=== PATIENT | female | born 1975 | race Two or more races ===

== ENCOUNTER 2025-01-24 01:06 | Emergency (ER) | payer MEDICAID, SELFPAY ==
[2025-01-24 01:09] VITALS: BMI 43.9
[2025-01-24 01:57] VITALS: BP 122/76; PULSE 91; RESP 17; TEMP 36.9; O2SAT 97
--- NOTE | 2025-01-24 02:30 | PD.EDRME ---
Rapid Medical Screening Exam RME Arrival date/time: 01/24/25 01:06 Chief Complaint: Abdominal Pain Time Seen by Provider: 01/24/25 02:06 Vital signs: Vital Signs Temperature 98.4 F 01/24/25 01:57 Pulse Rate 91 01/24/25 01:57 Respiratory Rate 17 01/24/25 01:57 Blood Pressure 122/76 01/24/25 01:57 Pulse Oximetry (%) 97 01/24/25 01:57 Oxygen Delivery Method Room Air 01/24/25 01:57 Vital signs reviewed by provider: Yes RME Narrative: 49-year-old female presents to the ED with a complaint of pelvic pain. She states she was seen by her primary care physician 2 days ago and diagnosed with a cyst by her coccyx. She was given pain medications as well as antibiotics. Apparently she is scheduled to have surgery next week for removal however tonight she took a shower earlier and was sitting on the couch and heard. This caused the cyst to drain with purulent foul-smelling drainage. She is having increasing pain.
--- NOTE | 2025-01-24 04:58 | EDRME_ITS ---
Rapid Medical Screening Exam [facility] Arrival date/time: 01/24/25 01:06 49-year-old female presents to the ED with a complaint of low back pain. She states she was seen by her primary care physician 2 days ago and diagnosed with a cyst by her coccyx . She was given pain medications as well as antibiotics. Apparently she is scheduled to have surgery next week for removal however tonight she took a shower earlier and was sitting on the couch and the cyst began to drain with purulent foul-smelling drainage. She is having increasing pain. Chief Complaint: Abdominal Pain Time Seen by Provider: 01/24/25 02:06 Vital signs: Vital Signs Temperature 98.4 F 01/24/25 01:57 Pulse Rate 91 01/24/25 01:57 Respiratory Rate 17 01/24/25 01:57 Blood Pressure 122/76 01/24/25 01:57 Pulse Oximetry (%) 97 01/24/25 01:57 Oxygen Delivery Method Room Air 01/24/25 01:57 RME Narrative: 49-year-old female presents to the ED with a complaint of pelvic pain. She states she was seen by her primary care physician 2 days ago and diagnosed with a cyst by her coccyx. She was given pain medications as well as antibiotics. Apparently she is scheduled to have surgery next week for removal however tonight she took a shower earlier and was sitting on the couch and heard. This caused the cyst to drain with purulent foul-smelling drainage. She is having increasing pain.
--- NOTE | 2025-01-24 05:12 | PD.EDADULT ---
ED General RME/HPI General Chief complaint: Abdominal Pain Stated complaint: PELVIC PAIN Time Seen by Provider: 01/24/25 02:06 Arrival date/time: 01/24/25 01:06 RME / HPI RME / HPI narrative: 49-year-old female presents to the ED with a complaint of pelvic pain. She states she was seen by her primary care physician 2 days ago and diagnosed with a cyst by her coccyx. She was given pain medications as well as antibiotics. Apparently she is scheduled to have surgery next week for removal however tonight she took a shower earlier and was sitting on the couch and heard a pop. This caused the cyst to drain with purulent foul-smelling drainage. She is having increasing pain. Related Data Previous Rx's ?Medication ?Instructions ?Recorded rizatriptan 10 mg tablet (Maxalt) 10 mg PO Q2H PRN migraine headache 07/09/24 #30 tabs rizatriptan 10 mg disintegrating 10 mg PO Q2H PRN migraine headache 07/10/24 tablet (Maxalt-JUNIOR MECHANICAL ENGINEER) #30 tabs acetaminophen 300 mg-codeine 15 mg 1 tab PO Q6H PRN pain #10 tabs 01/24/25 tablet meloxicam 15 mg tablet 15 mg PO QDAY #10 tabs 01/24/25 ferrous sulfate 325 mg (65 mg 325 mg PO BID 30 days #60 tabs 03/09/25 iron) tablet medroxyprogesterone 10 mg tablet 10 mg PO QDAY #5 tabs 03/09/25 (Provera) Allergies Allergy/AdvReac Type Severity Reaction Status Date / Time No Known Allergies Allergy Verified 03/09/25 12:39 Review of Systems Review of Systems Systems Reviewed: All systems reviewed, normal except as documented Past Medical History Social History SMOKING STATUS: Never smoker ED Exam Narrative Physical exam: A&O, afebrile and non-toxic appearing 49-year-old female, no acute distress. Lung are clear, RRR, Abdomen is soft, nontender, non-distended. Low back tenderness with ruptured pilonidal cyst noted. Purulent, bloody drainage noted. Moves all extremities well. Course Course Course Narrative: Patient was given morphine 5 mg IM and ondansetron 4 mg ODT. She was also given clindamycin 600 mg IM. Quality Measures none Orders Category Date Time Status Clindamycin Vial [Cleocin vial] Med 01/24/25 05:04 Discontinued 600 mg IM X1 ONE Morphine Inj Med 01/24/25 05:00 Discontinued 5 mg IM X1 ONE Ondansetron Odt [Zofran Odt] Med 01/24/25 05:01 Discontinued 4 mg PO X1 ONE cefTRIAXone [Rocephin] 2 gm Med 01/24/25 05:00 Discontinued Lidocaine 1% 20 ml [Xylocaine 1% 20 ML] 4.2 ml IM X1 Vital Signs Vital signs: Vital Signs Temperature 98.4 F 01/24/25 01:57 Pulse Rate 91 01/24/25 01:57 Respiratory Rate 17 01/24/25 01:57 Blood Pressure 122/76 01/24/25 01:57 Pulse Oximetry (%) 97 01/24/25 01:57 Oxygen Delivery Method Room Air 01/24/25 01:57 Discharge Plan Plan Patient Disposition: HOME (Self Care) Discharge Disposition comment: Stable Prescriptions/Referrals Prescriptions/Med Rec: New acetaminophen-codeine 300-15 mg tablet 1 tab PO Q6H PRN (Reason: pain) Qty: 10 0RF meloxicam 15 mg tablet 15 mg PO QDAY Qty: 10 0RF No Action rizatriptan [Maxalt] 10 mg tablet 10 mg PO Q2H PRN (Reason: migraine headache) Qty: 30 0RF Rx Instructions: do not exceed 3 doses per 24 hrs rizatriptan [Maxalt-JUNIOR MECHANICAL ENGINEER] 10 mg tablet,disintegrating 10 mg PO Q2H PRN (Reason: migraine headache) Qty: 30 0RF Rx Instructions: do not exceed 3 doses per 24 hrs medroxyprogesterone [Provera] 10 mg tablet 10 mg PO QDAY Qty: 5 0RF ferrous sulfate 325 mg (65 mg iron) tablet 325 mg PO BID 30 Days Qty: 60 0RF Referrals: García Taylor MD [Primary Care Provider] - In 1 week Problem List Clinical Impression: Cyst, pilonidal, with abscess Patient/Caregiver Discharge Instructions Education Materials: ED Cyst Pilonidal Infec Abx Only Additional Instructions: Follow-up with your primary care physician in 24 hours, on Friday morning. Return to the ED for any new or worsening symptoms. Print Language: Estonian Stand Alone Forms: Greta Award Info., Patient Portal Info Letter PA/CATH LAB Supervising Physician DIANE Supervising Physician: Dr Jada CHAVEZ Narrative [facility] hospital course: 49-year-old female presents to the ED with a complaint of pelvic pain. She states she was seen by her primary care physician 2 days ago and diagnosed with a cyst by her coccyx. She was given pain medications as well as antibiotics. Apparently she is scheduled to have surgery next week for removal however tonight she took a shower earlier and was sitting on the couch and heard a pop. This caused the cyst to drain with purulent foul-smelling drainage. She is having increasing pain. A&O, afebrile and non-toxic appearing 49-year-old female, no acute distress. Lung are clear, RRR, Abdomen is soft, nontender, non-distended. Low back tenderness with ruptured pilonidal cyst noted. Purulent, bloody drainage noted. Moves all extremities well. Patient was given morphine 5 mg IM and ondansetron 4 mg ODT. She was also given clindamycin 600 mg IM. Symptoms, exam and diagnostic studies are consistent with: Ruptured/draining Pilonidal Cyst. Patient was discharged home in stable condition. Patient/family advised to follow-up with their PCP in 24-48 hours. Encouraged to return to the ED for any new or worsening symptoms. Procedures done or offered: 9 Clinical Information Provided by patient Medical Records Reviewed None Meds/Rx Considered, not Ordered None Describe details: N/A Labs/Rad/Tests considered, not Ordered None Describe details: N/A Chronic Illness/Social Conditions which may negatively complicate care or outcome(s)-explain: None or not applicable EKG EKG not done Lab Interpretation Labs: none Lab(s) interpretation(s): N/A Imaging Imaging interpretation: none Radiology reports / interpretation(s): N/A Medication Administration(s) Medication Administration History Discontinued Medications Clindamycin Phosphate (Clindamycin Phos Inj 150 Mg/Ml Vial 6 Ml) 600 mg IM X1 ONE Stop: 01/24/25 05:05 Last Admin: 01/24/25 05:43 Dose: 600 mg Documented By: BACILIO Ceftriaxone Sodium 2 gm/ (Lidocaine HCl 4.2 ml) 0 gm IM X1 ONE Stop: 01/24/25 05:01 Last Admin: 01/24/25 05:35 Dose: Not Given Documented By: BACILIO Non-Admin Reason: Discontinued Morphine Sulfate (Morphine Sulf Inj 10 Mg/Ml Vial) 5 mg IM X1 ONE Stop: 01/24/25 05:01 Last Admin: 01/24/25 05:43 Dose: 5 mg Documented By: BACILIO Ondansetron HCl (Ondansetron Odt 4 Mg Tabrap) 4 mg PO X1 ONE; Protocol Stop: 01/24/25 05:02 Last Admin: 01/24/25 05:43 Dose: 4 mg Documented By: BACILIO As noted above Diagnosis Differential diagnosis: Abscess, cellulitis, pilonidal cyst, ruptured pilonidal cyst Most likely dx, and/or detailed dx discussion: Ruptured pilonidal cyst Dispositon Disposition: Discharge Home Disposition comments: Patient is stable for discharge
[2025-01-24] MEDS: MORPHINE SULF INJ 10 MG/ML VIAL 5 MG IM (05:43)
[2025-01-24] MEDS: CLINDAMYCIN PHOS INJ 150 MG/ML VIAL 6 ML 600 MG IM (05:43)
[2025-01-24] MEDS: ONDANSETRON ODT 4 MG TABRAP PO (05:43)
== END 2025-01-24 06:22 | disposition home or self-care (01) ==
PROVIDERS: Emergency Provider Emergency Medicine; PCP Family Medicine
DX: L05.01 Pilonidal cyst with abscess (principal)
CPT/HCPCS: 96372; 99283; J0736; J2270; Q0162

== ENCOUNTER 2025-03-09 12:33 | Emergency (ER) | payer BC, SELFPAY ==
--- NOTE | 2025-03-09 12:48 | EDNOTE_ITS ---
ED OB Contraction Preg RMI/HPI General Chief complaint: Vaginal Bleeding Stated complaint: Vaginal bleeding X 1 week, on period Time Seen by Provider: 03/09/25 12:35 Arrival date/time: 03/09/25 12:33 This is a case of 49-year-old female who came into the emergency room due to vaginal bleeding and pelvic cramping for 1 week patient have 3 vaginal delivery denies fever chills or generalized weakness Limitations: no limitations Related Data Previous Rx's ?Medication ?Instructions ?Recorded rizatriptan 10 mg tablet (Maxalt) 10 mg PO Q2H PRN lani ruben headache 07/09/24 #30 tabs rizatriptan 10 mg disintegrating 10 mg PO Q2H PRN migr shakeel headache 07/10/24 tablet (Maxalt-DOPE FIRER) #30 tabs acetaminophen 300 mg-codeine 15 mg 1 tab PO Q6H PRN pa in #10 tabs 01/24/25 tablet meloxicam 15 mg tablet 15 mg PO QDAY #10 tabs 01/24 cefuroxime axetil 500 mg tablet 500 mg PO BID 10 days #20 tabs 03/09/25 ferrous sulfate 325 mg (65 mg 325 mg PO BID 30 days #6 0 tabs 03/09/25 iron) tablet medroxyprogesterone 10 mg tablet 10 mg PO QDAY #5 tabs 03/09/25 (Provera) Allergies Allergy/AdvReac Type Severity Reaction Status Date / Time No Known Allergies Allergy Verified 03/09/25 12:39 Review of Systems Review of Systems Systems Reviewed: All systems reviewed, normal except as documented Constitutional Constitutional: Reports system reviewed and no additional complaints, except as documented and Reports as per HPI Cardiovascular Cardiovascular: Reports system reviewed and no additional complaints, except as documented and Reports as per HPI Respiratory Respiratory: Reports as per HPI Gastrointestinal Gastrointestinal: Reports system reviewed and no additional complaints, except as documented, Reports as per HPI, Denies abdominal pain, Denies loose stools, Denies nausea and Denies vomiting Genitourinary Genitourinary: Reports system reviewed and no additional complaints, except as documented, Reports as per HPI, Reports abnormal vaginal bleeding, Denies dysuria, Denies urinary frequency, Denies urinary incontinence, Denies urinary hesitancy, Denies urinary urgency, Denies vaginal discharge, Denies vaginal dryness, Denies vaginal odor and Denies vaginal pruritus Musculoskeletal Musculoskeletal: Reports system reviewed and no additional complaints, except as documented and Reports as per HPI Neurologic Neurologic: Reports system reviewed and no additional complaints, except as documented and Reports as per HPI Past Medical History Social History SMOKING STATUS: Never smoker ED Exam General Limitations: Present no limitations General appearance: Present alert, in no apparent distress and other (Patient is awake alert oriented not in distress nontoxic looking well-hydrated well- nourished) Head Head exam: Present atraumatic, normocephalic and normal inspection Eye Eye exam: Present normal appearance, PERRL and EOMI ENT ENT exam: Present normal exam, normal oropharynx and mucous membranes moist Neck Neck exam: Present normal inspection, full ROM and trachea midline Chest Chest inspection: Present normal inspection and symmetric chest wall rise; Absent tenderness, rash or abscess Respiratory Respiratory exam: Present normal lung sounds bilaterally; Absent respiratory distress, wheezes, stridor, accessory muscle use or prolonged expiratory phase Cardiovascular Cardiovascular exam: Present regular rate, normal rhythm and normal heart sounds; Absent bradycardia, tachycardia, irregular rhythm, systolic murmur or diastolic murmur Abdominal Exam Abdominal exam: Present soft, normal bowel sounds and other (No CVA tenderness); Absent distention, tenderness, guarding, rebound, rigidity, diminished bowel sounds, hyperactive bowel sounds, hypoactive bowel sounds, organomegaly, obturator sign, Bingham's sign, Rovsing's sign or tenderness at McBurney's Point Extremities Exam Extremities exam: Present normal inspection and full ROM Back Exam Back exam: Present normal inspection and full ROM Neurological Exam Neurological exam: Present alert, oriented X3, CN II-XII intact, normal gait and reflexes normal; Absent motor sensory deficit Psychiatric Psychiatric exam: Present normal affect and normal mood Skin Skin exam: Present warm, dry, intact and normal color Course Quality Measures none Orders Category Date Time Status US pelvic complete Stat Exams 03/09/25 13:08 Completed ABO/RH Type Stat Lab 03/09/25 13:15 Completed CBC Stat Lab 03/09/25 13:15 Completed CMP [Comprehensive Metabolic Panel] Stat Lab 03/09/25 13:15 Completed HCG,Qualitative Serum Stat Lab 03/09/25 13:15 Completed Urinalysis Stat Lab 03/09/25 13:08 Ordered Vital Signs Vital signs: Vital Signs Temperature 98.3 F 03/09/25 12:53 Pulse Rate 88 03/09/25 12:53 Respiratory Rate 16 03/09/25 12:53 Blood Pressure 141/65 H 03/09/25 12:53 Pulse Oximetry (%) 96 03/09/25 12:53 Oxygen Delivery Method Room Air 03/09/25 12:53 Patient is afebrile not tachycardic not tachypneic BP stable not hypoxic oxygen saturation is 96% in room air Vaginal Bleeding MDM Narrative MDM Narrative: This is a case of 49-year-old female who came into the emergency room due to vaginal bleeding and pelvic cramping for 1 week patient have 3 vaginal delivery denies fever chills or generalized weakness patient is awake alert oriented not in distress nontoxic looking well-hydrated well-nourished not pale lungs sound is clear no crackles no rales no retraction no stridor abdominal exam is benign nonsurgical no guarding no rebound no rigidity no tenderness negative psoas negative straight or negative Rovsing's negative McBurney's negative Bingham sign negative CVA tenderness blood test showed no leukocytosis anemia hemoglobin is 9.6 platelet is normal no electrolyte imbalance kidney and liver function is normal patient urinalysis shows WBC and RBC in urine suggestive of urinary tract infection pelvic ultrasound showed ovarian hemorrhagic cyst and uterine fibroid at this point patient will be discharged with stable condition BP stable not tachycardic not tachypneic patient was discharged with cefuroxime for urinary tract infection ferrous sulfate for anemia patient was given Provera for 5 days due to anemia and abnormal vaginal bleeding blood clots until she will see OB cardiothoracic surgeon follow-up with primary care physician in 2 days for reevaluation and to be referred to OB cardiothoracic surgeon for your ovarian cyst and uterine fibroid for any persistent worsening symptoms or any emergent concern return precaution in the emergency room was advised Patient was discharged with comfortable condition walking with stable gait. Patient verbalized no further complains explained diagnosis and answered patient question. Patient is comfortable with the proposed management plan including the need to follow up with his/her primary care physician and any specialist if applicable Discussed patient for any urgent condition or worsening sx, He/She needed to go to emergency room immediately or call 911. Patient acknowledge the responsibility to follow up as instructed and to monitor her/his symptoms. For any persistence of the symptoms for more than 3-5 days return precaution advised. Discussed the result of the test and was given printed discharge instruction Patient data External records reviewed:: [facility] previous records Clinical information provided by:: patient and family Social determinants that could affect healthcare access:: none Patient has the following chronic illnesses:: None How is presenting disease/condition affected by chronic disease/condition?: no chronic disease Evaluation data The following diagnostics were reviewed and interpreted by me:: lab results and radiology exam(s) Lab and/or radiology exams considered but not ordered:: Reviewed Interpretation Summary: Reviewed Medications / Prescriptions Medications or Prescriptions considered but not ordered:: Given Medication administrations:: Given Consultations Consultation(s) initiated? (list below): No Diagnosis Vaginal Bleeding Differential Diagnosis: dysfunctional uterine bleeding, menometrorrhagia, vaginal bleeding and other (Uterine fibroid ovarian cyst) Most likely diagnosis given after review of the tests above:: Uterine fibroids ovarian cyst abnormal vaginal bleeding Admission Indicated Admission indicated?: not indicated Explain why admission is indicated or not indicated:: Not indicated Admission Request Was there a request for admission?: No Admission Attestation Admission request attestation: Not indicated Disposition Plan Disposition Plan: Discharge Discharge Attestation Discharge Attestation: The patient and all family members were given an opportunity to ask questions and understood the discharge instructions. Discharge instructions specifically effects, indications for sooner follow up or return to the emergency department, and the expected course of current diagnosis. Patient condition: Stable Discharge Plan Plan Patient Disposition: HOME (Self Care) Patient condition on transfer: Stable Prescriptions/Referrals Prescriptions/Med Rec: New cefuroxime axetil 500 mg tablet 500 mg PO BID 10 Days Qty: 20 0RF medroxyprogesterone [Provera] 10 mg tablet 10 mg PO QDAY Qty: 5 0RF ferrous sulfate 325 mg (65 mg iron) tablet 325 mg PO BID 30 Days Qty: 60 0RF No Action rizatriptan [Maxalt] 10 mg tablet 10 mg PO Q2H PRN (Reason: migraine headache) Qty: 30 0RF Rx Instructions: do not exceed 3 doses per 24 hrs rizatriptan [Maxalt-DOPE FIRER] 10 mg tablet,disintegrating 10 mg PO Q2H PRN (Reason: migraine headache) Qty: 30 0RF Rx Instructions: do not exceed 3 doses per 24 hrs acetaminophen-codeine 300-15 mg tablet 1 tab PO Q6H PRN (Reason: pain) Qty: 10 0RF meloxicam 15 mg tablet 15 mg PO QDAY Qty: 10 0RF Referrals: García Taylor MD [Primary Care Provider] - In 1 week Problem List Clinical Impression: Abnormal vaginal bleeding, Fibroid, uterine, Ovarian cyst, Urinary tract infection, Anemia Patient/Caregiver Discharge Instructions Education Materials: Anemia, Ovarian Cysts, Urinary Tract Infections in Women, ED Dysfunctional Uterine Bleeding, ED Uterine Fibroids Additional Instructions: Follow-up with your primary care physician in 2 days for reevaluation and to be referred to OB cardiothoracic surgeon for further evaluation and treatment of your abnormal vaginal bleeding uterine fibroid and ovarian cyst worsening symptoms or any emergent concern call 911 or go to the nearest emergency room take your medication as directed finish the course of antibiotic keep hydrated Print Language: Swedish Stand Alone Forms: Greta Award Info., Patient Portal Info Letter PA/CHIEF ENVIRONMENTAL COMMITMENT OFFICER Supervising Physician PA/CHIEF ENVIRONMENTAL COMMITMENT OFFICER Supervising Physician: dr nolasco
[2025-03-09 12:53] VITALS: BP 141/65; PULSE 88; RESP 16; TEMP 36.8; O2SAT 96; BMI 38.2
--- NOTE | 2025-03-09 13:08 | XR_ITS ---
Examination: Pelvic ultrasound, transabdominal, complete Technique: Transabdominal ultrasound of the pelvis performed using grayscale imaging Date and time of exam: March 09, 2025 1410 hours INDICATIONS: Heavy vaginal bleeding beginning 8 months ago FINDINGS: Uterus 10.5 cm posterior fundal mass 15 x 12 x 18 mm Endometrial stripe 0.5 cm Right ovary 6.3 cm arterial flow, 4.9 x 3.1 x 3.4 cm cyst with internal echoes Left ovary 3.8 cm arterial flow 15 mm follicular cyst IMPRESSION: Smaller probable uterine fibroid degeneration 15 x 12 x 18 mm Right ovarian hemorrhagic cyst 4.9 x 3.1 x 3.4 cm, recommend 6 month follow-up pelvic sonography
[2025-03-09 13:29] LABS: Basophils # (Auto) 0.1 Thou/mm3 (0.0-0.2); Basophils % (Auto) 1 % (0-2.5); Eosinophils # (Auto) 0.2 Thou/mm3 (0.0-0.5); Eosinophils % (Auto) 2 % (0-10); Hematocrit 29.0 % (36.0-46.0); Hemoglobin 9.6 g/dL (12.0-16.0); Immature Granulocytes Auto 0.04 Thou/mm3 (0.00-0.00); Lymphocytes # (Auto) 2.3 Thou/mm3 (1.0-4.8); Lymphocytes % (Auto) 24 % (10-50); Mean Corpuscular HGB Conc 33.1 g/dl (31.0-37.0); Mean Corpuscular Hemoglobin 27.3 pg (25.0-35.0); Mean Corpuscular Volume 82 fL (80-100); Monocytes # (Auto) 0.8 Thou/mm3 (0.0-0.8); Monocytes % (Auto) 9 % (0-12); Neutrophils # (Auto) 6.1 Thou/mm3 (1.8-7.7); Neutrophils % (Auto) 65 % (37-80); Nucleated Red Blood Cell # 0.00 Thou/mm3 (0.00-0.00); Nucleated Red Blood Cell % 0 /100 WBC (0); Platelet Count 311 Thou/mm3 (140-440); RDW Standard Deviation 47.8 fL (36.4-46.3); Red Blood Count 3.52 Miln/mm3 (4.00-5.20); White Blood Count 9.5 Thou/mm3 (3.6-11.0)
[2025-03-09 13:42] LABS: HCG,Qualitative Serum Negative
[2025-03-09 13:45] LABS: Alanine Aminotransferase 24 U/L (10-49); Albumin, Serum 4.1 gm/dL (3.5-5.0); Albumin/Globulin Ratio 1.6 (1.2-2.2); Alkaline Phosphatase 70 U/L (46-116); Anion Gap 7 (7-16); Aspartate Amino Transferase 21 U/L (0-34); BUN/Creatinine Ratio 9 Ratio (12-20); Bilirubin,Total 0.2 mg/dL (0.3-1.2); Blood Urea Nitrogen 11 mg/dL (9-23); Calcium 8.9 mg/dL (8.3-10.6); Calcium (Corrected) 8.9 mg/dL (8.5-10.1); Carbon Dioxide 26.7 mMol/L (20.0-31.0); Chloride 108 mMol/L (98-107); Creatinine (Component) 1.2 mg/dL (0.6-1.3); Estimated Creatinine Clearance 59.5 mL/min (>60); Globulin 2.6 gm/dL (2.3-3.5); Glucose 118 mg/dL (74-106); Osmolality,Calculated 283 (275-295); Potassium 4.4 mMol/L (3.4-5.1); Sodium 142 mMol/L (136-145); Total Protein 6.7 gm/dL (5.7-8.2); eGFR 55 See Note
[2025-03-09 15:10] LABS: Collection Type, Urine Voided; Squamous Epithelial Cell,Urine 0 /hpf (0-5)
[2025-03-09 15:40] LABS: Bilirubin,Urine Negative (Negative); Blood,Urine 3+ (Negative); Color,Urine Dark-Brown (Lt Yel-Yel); Glucose, Urine Negative (Negative); Ketones,Urine Negative (Negative); Leukocyte Esterase,Urine Positive (Negative); Nitrite,Urine Negative (Negative); PH,Urine 6.0 (5.0-7.0); Protein,Urine 1+ (Neg - Trace); RBC,Urine 5502 /hpf (0-3); Specific Gravity,Urine 1.019 (1.001-1.035); Urobilinogen,Urine Negative mg/dL (0.0-1.0); WBC,Urine 15 /hpf (0-5)
[2025-03-09 15:49] LABS: Clarity,Urine Turbid (Clear/Hazy)
== END 2025-03-09 15:56 | disposition home or self-care (01) ==
PROVIDERS: Nurse Practitioner Family; Emergency Provider Emergency Medicine; PCP Family Medicine
DX: D25.9 Leiomyoma of uterus, unspecified (principal); D64.9 Anemia, unspecified; N39.0 Urinary tract infection, site not specified; N83.201 Unspecified ovarian cyst, right side
CPT/HCPCS: 36415; 76856; 80053; 81001; 84703; 85025; 86900; 86901; 99283